=== PATIENT | female | born 1965 | race Caucasian/White ===

== ENCOUNTER 2017-03-04 02:21 | Emergency (ER) | payer BC, MEDICARE ==
[~2017-03-04] VITALS: Ht 157.5 cm; Wt 70.3 kg
[~2017-03-04 02:21] MED LIST: ACET500T33 PO; CHOL200027 PO; ESCI10TA PO; ESTR1PAT66 TD; FERR325T58 PO; HYDR-971 PO; MULT1TAB52 PO; NAPR500T PO; NORE5TAB3 PO; PROG100C7 PO; TOLT4CAP PO
[2017-03-04 02:36] VITALS: BP 152/67
[2017-03-04] MEDS ORDERED: HYDR-2666 PO (03:06)
--- NOTE | 2017-03-04 03:06 | PHYS DOC ---
Past Medical History Past Medical History: No Pertinent History Past Surgical History: Hysterectomy, Tonsillectomy Alcohol Use: Occasionally Drug Use: None Adult General Chief Complaint Chief Complaint: ANKLE PROBLEM HPI HPI Patient is a 51 year old female who presents with left ankle pain, constant, for the past few hours since rolling ankle while going down a step, worse with pressure or movement, unable to ambulate on ankle. He denies numbness, tingling , or weakness. Denies other injury. Review of Systems Review of Systems Constitutional: Denies fever or chills [] Eyes: Denies change in visual acuity, redness, or eye pain [] HENT: Denies nasal congestion or sore throat [] Respiratory: Denies cough or shortness of breath [] Cardiovascular: No additional information not addressed in HPI [] GI: Denies abdominal pain, nausea, vomiting, bloody stools or diarrhea [] : Denies dysuria or hematuria [] Musculoskeletal: Denies back pain [] Integument: Denies rash or skin lesions [] Neurologic: Denies headache, focal weakness or sensory changes [] Endocrine: Denies polyuria or polydipsia [] Allergies Allergies Allergies Coded Allergies Type Severity Reaction Last Updated Verified No Known Drug Allergies 05/05/16 No Physical Exam Physical Exam Constitutional: Well developed, well nourished, no acute distress, non-toxic appearance. [] HENT: Normocephalic, atraumatic, bilateral external ears normal, oropharynx moist, nose normal. [] Eyes: PERRLA, EOMI. [] Neck: Normal range of motion, supple. [] Cardiovascular:Heart rate regular rhythm [] Lungs & Thorax: Bilateral breath sounds clear to auscultation [] Abdomen: Bowel sounds normal, soft, no tenderness. [] Skin: Warm, dry, no erythema, no rash. [] Back: Normal range of motion. [] Extremities: LLE with no obvious bone deformity; has lateral swelling and ecchymosis distal to malleolus; No bony tenderness but has tenderness about swollen soft tissues laterally; Can flex/ex toes; Can dorsiflex/plantar flex ankle; No medial or lateral malleolar tenderness; No 5 th metatarsal base tenderness; No proximal fibula tenderness; SILT padilla/sa/sp/dp/tib distributions; good dp and pt pulses equal bilaterally Neurologic: Alert and oriented X 3, normal motor function, normal sensory function, no focal deficits noted. [] Psychologic: Affect normal, judgement normal, mood normal. [] Current Patient Data Vital Signs Vital Signs Date Time Temp Pulse Resp B/P (MAP) Pulse Ox O2 Delivery O2 Flow Rate FiO2 03/04/17 02:36 97.6 100 20 98 Room Air 97.6 03/04/17 02:30 124/75 (91) Radiology/Procedures Radiology/Procedures Left ankle x-ray as interpreted by me with no fracture or dislocation Course & Med Decision Making Course & Med Decision Making X-rays negative. Suspect sprain. Given Aircast splint. Discussed supportive care. Return precautions given. She understands and agrees with plan. Dragon Disclaimer Dragon Disclaimer This electronic medical record was generated, in whole or in part, using a voice recognition dictation system. Departure Departure Impression: Primary Impression: Left ankle sprain Disposition: HOME, SELF-CARE Condition: STABLE Referrals: ALBERTO CARUSO MD (PCP) Patient Instructions: Ankle Sprain, [id number] Additional Instructions: Take Tylenol or ibuprofen as needed for moderate pain. Take hydrocodone as needed for severe pain. Do not drink, drive or operate heavy machinery after taking hydrocodone as it may make you sleepy. Follow-up with your primary care doctor. Return for any concerns. Scripts Hydrocodone Bit/Acetaminophen (HYDROCODONE-APAP 5-325 ) 1 Each Tablet 1 TAB PO PRN Q6HRS Y for PAIN, #6 TAB 0 Refills Prov: Robyn COLORADO MD 03/04/17 Problem Qualifiers Primary Impression: Left ankle sprain Encounter type: initial encounter Involved ligament of ankle: unspecified ligament Qualified Codes: S93.402A - Sprain of unspecified ligament of left ankle, initial encounter Robyn COLORADO MD March 04, 2017 03:06
--- NOTE | 2017-03-04 08:01 | RAD ---
Indication pain and swelling. AP oblique and lateral views of the left ankle were obtained. On the AP view there is a linear area of increased density at the level of the midfoot. A small avulsion fracture accounting for the finding is not excluded. There is some soft tissue swelling at the same level. An additional finding is not seen.
== END 2017-03-04 03:13 | disposition home or self-care (01) ==
LOC: ER 02:21
DX: S93.402A Sprain of unspecified ligament of left ankle, initial encounter (principal); X58.XXXA Exposure to other specified factors, initial encounter; Y93.89 Activity, other specified; Y92.89 Other specified places as the place of occurrence of the external cause; Y99.8 Other external cause status
CPT/HCPCS: 29515; 73610; 99284-25